=== PATIENT | female | born 1935 | race Hispanic/Latino ===

== ENCOUNTER 2020-12-04 08:00 | Inpatient (IN) | payer MEDICARE ==
--- NOTE | 2020-12-05 11:33 | Anesthesia Consultation ---
Anesthesia Consult and Med Hx Date of service: 12/11/20 - Airway Anesthetic Teeth Evaluation: Dentures (upper and lower) ROM Head & Neck: Adequate (mild restricted extension) Mental/Hyoid Distance: Adequate Mallampati Class: Class III Intubation Access Assessment: Possibly Difficult - Pulmonary Exam CTA: Yes - Cardiac Exam Cardiac Exam: RRR - Pre-Operative Health Status ASA Pre-Surgery Classification: ASA3 Proposed Anesthetic Plan: General - Pulmonary Hx Smoking: No Hx Respiratory Symptoms: No - Cardiovascular System Hx Hypertension: Yes Hx Heart Attack/AMI: No Hx Percutaneous Transluminal Coronary Angioplasty (PTCA): No Hx Cardia Arrhythmia: No - Central Nervous System CVA: No - Gastrointestinal Hx Gastroesophageal Reflux Disease: Yes - Endocrine Hx Renal Disease: Yes (CKD) Hx Liver Disease: No Hx Non-Insulin Dependent Diabetes: Yes (rare insulin requirement; fasting glucose 110s-120s) Hx Hypothyroidism: Yes - Other Systems Hx Obesity: No - Additional Comments Anesthesia Medical History Comments: Preop cardiology eval on chart. Cardiology note reports neg ST 2019 and normal EF 2018. TTE and ST reports requested. Has rare exertional chest pain for which she takes nitroglycerine prn. 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 Discussed pre-induction arterial line placement and post op ICU admission. Patient requests anxiolytic during arterial line placement.
[2020-12-05 14:14] LABS: Hematocrit 38.1 % (30.3-42.9); Mean Corpuscular HGB Conc 34 % (30-34); Mean Corpuscular Volume 91 fl (79-97); Platelet Count 181 K/mm3 (140-440); Red Blood Count 4.21 M/mm3 (3.65-5.03); Red Cell Distribution Width 13.3 % (13.2-15.2)
[2020-12-05 14:18] LABS: Calcium 9.5 mg/dL (8.4-10.2)
[2020-12-11] MEDS ORDERED: LACTATED RINGERS 1,000 ML IV SCH (06:00)
[2020-12-11] MEDS ORDERED: ceFAZolin/Water 2 GM/20 ML 2 GM/20 ML SYRINGE IV NR (06:00)
[2020-12-11] MEDS ORDERED: BUPIVACAINE/PF (0.5%) 5 MG/1 ML 10 ML VIAL INFILTRATI ONE (07:16)
[2020-12-11] MEDS ORDERED: PROTAMINE SULFATE 50 MG/5 ML INJ ONE (07:16)
[2020-12-11] MEDS ORDERED: LIDOCAINE (1%) 10 MG/1 ML VIAL 20 ML MDV ONE (07:16)
[2020-12-11] MEDS ORDERED: SODIUM CHLORIDE P/F VIAL 10 ML 10 ML ONE (07:17)
[2020-12-11] MEDS ORDERED: GELATIN SPONGE SIZE 100 TP ONE ×2 (07:17→11:21)
[2020-12-11] MEDS ORDERED: SODIUM CHLORIDE 0.9% 500 ML 500 ML ONE (07:17)
[2020-12-11] MEDS ORDERED: rifAMPin 600 MG VIAL ONE (07:17)
[2020-12-11] MEDS ORDERED: HEPARIN 10,000 UNITS/10 ML VIAL ONE (07:17)
[2020-12-11] MEDS ORDERED: THROMBIN (RECOMBINANT) 5,000 UNIT VIAL TP ONE ×2 (07:18→11:21)
--- NOTE | 2020-12-11 07:22 | Anesthesia Day of Surgery ---
Anesthesia Day of Surgery - Day of Surgery Patient Examined: Yes Patient H&P Reviewed: Yes Patient is NPO: Yes Beta Blockers: No Cardiac Clearance: No Pulmonary Clearance: No Guilherme's Test: N/A
[2020-12-11] MEDS ORDERED: ONDANSETRON 4 MG/2 ML INJ IV PRN ×2 (07:23→08:06)
[2020-12-11] MEDS ORDERED: NALOXONE 0.4 MG/1 ML INJ IV PRN (07:23)
[2020-12-11] MEDS ORDERED: oxyCODONE /ACETAMINOPHEN 5-325MG TAB PO PRN (07:23)
[2020-12-11] MEDS ORDERED: fentaNYL 100 MCG/2 ML INJ IV PRN (07:23)
[2020-12-11] MEDS ORDERED: BUPIVACAINE/PF (0.5%) 5 MG/1 ML 30 ML VIAL INFILTRATI ONE ×2 (07:28→10:17)
[2020-12-11] MEDS ORDERED: SODIUM CHLORIDE 0.9% 50 ML ONE (07:34)
[2020-12-11] MEDS ORDERED: ONDANSETRON 4 MG/2 ML INJ ONE (07:42)
[2020-12-11] MEDS ORDERED: ROCURONIUM 50 MG/5 ML INJ IV ONE (07:42)
[2020-12-11] MEDS ORDERED: LIDOCAINE MPF (2%) 20 MG/1 ML VIAL 5 ML ONE (07:42)
[2020-12-11] MEDS ORDERED: dexAMETHasone 20 MG/5 ML VIAL ONE (07:42)
[2020-12-11] MEDS ORDERED: propofoL 200 MG/20 ML VIAL IV ONE (07:42)
[2020-12-11] MEDS ORDERED: fentaNYL 100 MCG/2 ML INJ ONE (07:43)
[2020-12-11] MEDS ORDERED: PHENYLEPHRINE 10 MG/1 ML INJ SDV ONE (07:46)
[2020-12-11] MEDS ORDERED: HYDROmorphone 1 MG/1 ML INJ IV PRN ×2 (08:06)
--- NOTE | 2020-12-11 08:56 | Short Stay Summary ---
Short Stay Documentation Date of service: 12/11/20 Narrative H&P: The patient is an 85-year-old female with a history of carotid artery stenosis with questionable symptoms. She has occasional dizziness and headaches and had one episode of right arm numbness and weakness. 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 She had an ultrasound that demonstrated left internal carotid artery stenosis and this was subsequently confirmed by MRA. She was worked up and found to be a suitable candidate for left carotid endarterectomy. She has no additional complaints at this time. - History Past Medical History: diabetes, DVT, GERD, hypertension, hyperlipidemia, other (Carotid stenosis, cataract, hypothyroidism) Past Surgical History: cholecystectomy, hysterectomy, total knee replacement, Other (Stenting of bilateral iliac veins) Social history: lives with family - Allergies and Medications Current Medications: Allergies aspirin Allergy (Verified 12/04/20 09:04) Unknown ciprofloxacin [From Cipro] Allergy (Verified 12/04/20 09:04) Hives codeine Allergy (Verified 12/04/20 09:04) Shortness of Breath Iodinated Contrast Media Allergy (Verified 12/04/20 09:15) Unknown Sulfa (Sulfonamide Antibiotics) Allergy (Verified 12/04/20 09:04) Hives Home Medications Medication Instructions Recorded Confirmed Last Taken Type Clopidogrel [Plavix] 75 mg PO QDAY 12/04/20 12/04/20 Unknown History Furosemide [Lasix TAB] 80 mg PO DAILY 12/04/20 12/04/20 Unknown History Levothyroxine [Synthroid] 75 mcg PO QAM 12/04/20 12/04/20 Unknown History Potassium Chloride [K-Dur] 30 meq PO QDAY 12/04/20 12/04/20 Unknown History Rosuvastatin Calcium [Crestor] 20 mg PO DAILY 12/04/20 12/04/20 Unknown History verapamiL [Calan] 120 mg PO HS 12/04/20 12/04/20 Unknown History Active Medications Fentanyl (Fentanyl 100 Mcg/2 Ml Inj) 50 mcg IV Q5MIN PRN PRN Reason: Pain , Severe (7-10) Stop: 12/11/20 23:00 Hydromorphone HCl (Hydromorphone 1 Mg/1 Ml Inj) 0.25 mg IV Q10MIN PRN PRN Reason: Pain, Moderate (4-6) Stop: 12/11/20 20:00 Hydromorphone HCl (Hydromorphone 1 Mg/1 Ml Inj) 0.5 mg IV Q10MIN PRN PRN Reason: Pain , Severe (7-10) Stop: 12/11/20 20:00 Lactated Ringer's (Lactated Ringers) 1,000 mls @ 100 mls/hr IV DIRECT [facility] Stop: 12/11/20 23:59 Cefazolin Sodium (Ancef/Sterile Water 2 Gm/20 Ml) 2 gm in 20 mls @ 80 mls/hr IV PREOP NR; Protocol Stop: 12/11/20 20:00 Naloxone HCl (Naloxone 0.4 Mg/1 Ml Inj) 0.1 mg IV Q2MIN PRN PRN Reason: Res Rate </= 8 or 02 SAT < 92% Ondansetron HCl (Ondansetron 4 Mg/2 Ml Inj) 4 mg IV ONCE PRN PRN Reason: Nausea And Vomiting Stop: 12/11/20 16:00 Ondansetron HCl (Ondansetron 4 Mg/2 Ml Inj) 4 mg IV ONCE PRN PRN Reason: Nausea And Vomiting Stop: 12/11/20 18:00 Oxycodone/Acetaminophen (Oxycodone /Acetaminophen 5-325mg Tab) 1 tab PO ONCE PRN PRN Reason: Pain, Moderate (4-6) Stop: 12/11/20 18:00 - Physical exam General appearance: no acute distress Lungs: Normal air movement Breasts: deferred Heart: Regular rate Gastrointestinal: normal Female Genitourinary: deferred Rectal Exam: deferred Extremities: no ischemia, pulses intact, No edema - Brief post op/procedure progress note Date of procedure: 12/11/20 Pre-op diagnosis: Left Carotid Artery Stenosis Post-op diagnosis: same Procedure: 1. Left Carotid Artery Endarterectomy Patch Angioplasty 2. Intraoperative Completion Duplex Anesthesia: GETA Surgeon: CHA COLON Estimated blood loss: minimal Pathology: list (Left carotid artery plaque) Specimen disposition: to lab Condition: stable Short Stay Discharge Plan Follow up with: PRIMARY CARE, [Primary Care Provider] - 7 Days
[2020-12-11] MEDS ORDERED: GLYCOPYRROLATE 0.4 MG/2 ML INJ ONE ×3 (09:59→12:42)
[2020-12-11] MEDS ORDERED: HEPARIN 10,000 UNITS/10 ML VIAL IV ONE (10:17)
[2020-12-11] MEDS ORDERED: SODIUM CHLORIDE 0.9% 500 ML IVPB IRRIGATION ONE (10:18)
[2020-12-11] MEDS ORDERED: SODIUM CHLORIDE 0.9% P/F 10 ML VIAL IV ONE (10:20)
[2020-12-11] MEDS ORDERED: SODIUM CHLORIDE 0.9% 50 ML IVPB IV ONE (10:20)
[2020-12-11] MEDS ORDERED: rifAMPin 600 MG VIAL IV ONE (10:21)
[2020-12-11] MEDS ORDERED: SODIUM CHLORIDE 0.9% IRR 1,500 ML BOTTLE IR ONE (10:21)
[2020-12-11] MEDS ORDERED: NEOSTIGMINE 10MG/10 ML INJ MDV ONE (11:21)
--- NOTE | 2020-12-11 11:46 | Vascular Lab Report ---
VL carotid duplex LT INDICATION / CLINICAL INFORMATION: LT. CAROTID STENOSIS COMPARISON: None available. FINDINGS: LEFT CAROTID: Limited grayscale and color Doppler flow images of the left carotid were performed intr aoperatively after carotid endarterectomy. - PLAQUE ESTIMATE: < 50% -The carotid bifurcation appears within normal limits. - ICA peak systolic velocity: 64.3 cm/sec. -Left ICA end diastolic velocity = 6.7 cm/S Left Vertebral Artery: Antegrade flow. IMPRESSION: 1. Limited intraoperative ultrasound of the left carotid system status post carotid endarterectomy de monstrates patent internal carotid artery with velocities described above. Signer Name: Damon Cross MD Signed: 12/11/2020 11:41 AM Workstation Name: [id number]
--- NOTE | 2020-12-11 12:02 | Operative Report ---
Operative Report Operative Report: Date of procedure: 12/11/2020 Pre-operative diagnosis: Left Carotid Artery Stenosis Post-operative diagnosis: Left Carotid Artery Stenosis Procedure(s): 1. Left Carotid Endarterectomy With Patch Angioplasty 2. Intraoperative Completion Duplex Surgeon: Axel Burns MD Operating Room Specialist: None Anesthesia: General Endotracheal Anesthesia EBL: Minimal Findings: Completion duplex demonstrated monophasic flow in the left internal carotid artery with peak systolic velocities less than 80 cm/s without evidence of intimal flaps or thrombus. Specimen: Left Carotid Plaque Counts: Correct Complications: None Condition: Stable Indication: The patient is an 85-year-old female with a history of left internal carotid stenosis found on ultrasound. This was later verified on MRA. She was worked up and found to be a suitable candidate for a carotid endarterectomy. She was given the risk, benefits, and alternative procedures and consented to the procedure. Description of Procedure: The patient was brought to the operating room and laid in supine position. After general endotracheal anesthesia was achieved the patient was placed in beachchair position with her head elevated and turned slightly to the right. The patient's neck and chest were prepped and draped in normal fashion. An oblique incision was then created along the anterior border of the sternocleidomastoid. The incision was then carried down to the facial vein using sharp dissection. The facial vein was then dissected out circumferentially, suture ligated and divided. The dissection was then carried down to the common carotid using sharp dissection. The common carotid artery was dissected out circumferentially taking care to avoid the vagus nerve which was identified and avoided. The artery was then controlled with a large vessel loop. The dissection was carried up along the external carotid and the superficial thyroid artery was identified dissected out circumferentially and controlled with a 2-0 silk. The external carotid was dissected out and controlled a small vessel loop. I then dissected out the internal carotid artery well above the plaque which was identified by a change in hue of the artery from yellow to blue and palpation of the artery over a right angle. I controlled the internal carotid artery with a small vessel and at this point the patient was systemically heparinized with heparin IV. Once the heparin had circulated for 3 minute I clamped the internal carotid artery followed by the common carotid and then the external Carotid artery. I created an arteriotomy extending from the common carotid into the internal carotid, well above the plaque, using an 11 blade and Pantoja scissors. I then flashed the internal carotid artery to check for adequate backbleeding. Once ensure there was adequate backbleeding reclamped the artery and used a Herculaneum blade to dissect the plaque away from the artery. I used a right angle to continue the dissection of this plane from lateral to medial and then divided the plaque using Pantoja scissors. I then trimmed the plaque proximally using Pantoja and then teased the plaque away from the distal endpoint insuring that there were no areas of dissection or intimal flaps. These plaque forceps to remove all loose debris and then flushed the artery with heparinized saline. I then closed the artery using the Dacron patch and two 6-0 Prolenes in running fashion. Prior to completing the closure I flushed all arteries to remove all loose debris and then flushed the artery with heparinized saline. I then completed the closure in an flashed the internal carotid, reclamped and then removed the clamp from the common carotid followed by the external carotid and allowed any loose debris to flush into the external carotid. I then removed the clamp from the internal carotid artery. Hemostasis was achieved with repair sutures with 6-0 Prolene in interrupted fashion and a combination of direct pressure with Quick Clot. Once hemostasis was achieved I performed an intraoperative duplex that demonstrated no evidence of intimal flaps and monophasic flow within the internal carotid artery. I then anesthetized the wound with 0.5% Marcaine and closed in 2 layers using a 3-0 Vicryl in running in the deep dermal layer and a 4-0 Monocryl in running in the subcuticular layer and dressed it with the Dermabond. The patient tolerated the procedure well. All sponge, needle, and instrument counts were correct. The patient was taken to the recovery area in stable condition.
[2020-12-11] MEDS ORDERED: NITROPRUSSIDE 50 MG in DEXTROSE 5% IN WATER 248 ML IV SCH (13:00)
[2020-12-11] MEDS ORDERED: ACETAMINOPHEN IV 1,000 MG/100 ML BOTTLE IV SCH (13:00)
[2020-12-11] MEDS ORDERED: DOPamine/D5W 800 MG/250 ML 800 MG/250 ML BAG IV SCH (13:00)
[2020-12-11] MEDS ORDERED: GLYCOPYRROLATE 0.4 MG/2 ML INJ IV ONE (13:24)
--- NOTE | 2020-12-11 14:19 | Post Anesthesia Evaluation ---
- Post Anesthesia Evaluation Patient Participated: Yes Airway Patent: Yes Stable Respiratory Function: Yes Nausea/Vomiting: No Temp > 96.8F: Yes Pain Manageable: Yes Adequeate Hydration: Yes Anesthesia Complications: No Block Receding Appropriately: Not Applicable Patient on Ventilator: No
[2020-12-11] MEDS: ceFAZolin/NS 1 GM/50 ML 1 GM/50 ML BAG IV SCH ×2 (16:52→23:02)
[2020-12-11] MEDS: MIDODRINE 5 MG TAB PO SCH (17:49)
[2020-12-11] MEDS ORDERED: LACTATED RINGERS 1,000 ML IV ONE ×2 (18:00→20:00)
[2020-12-11] MEDS ORDERED: NORepinephrine/NS 4 MG-250 ML 4 MG/250 ML BAG IV SCH (18:00)
[2020-12-11] MEDS: SODIUM CHLORIDE 0.9% 1000 ML 1,000 ML IV SCH (19:17)
[2020-12-11] MEDS ORDERED: LACTATED RINGERS 2,000 ML IV ONE (20:25)
[2020-12-11] MEDS: ACETAMINOPHEN IV 1,000 MG/100 ML BOTTLE IV SCH (20:26)
[2020-12-11] MEDS: TIMOLOL 0.5% OPHTH SOLN 5 ML OU SCH (21:32)
[2020-12-11] MEDS: DOCUSATE SODIUM 100 MG CAP PO SCH (21:32)
[2020-12-11] MEDS ORDERED: VERAPAMIL 120 MG TAB PO SCH (22:00)
[2020-12-12] MEDS: ACETAMINOPHEN IV 1,000 MG/100 ML BOTTLE IV SCH ×2 (03:07→08:10)
[2020-12-12] MEDS ORDERED: LACTATED RINGERS 1,000 ML IV ONE (03:34)
[2020-12-12] MEDS: SODIUM CHLORIDE 0.9% 1000 ML 1,000 ML IV SCH ×2 (05:29→17:15)
[2020-12-12] MEDS: LEVOTHYROXINE 75 MCG TAB PO SCH (05:46)
[2020-12-12] MEDS ORDERED: FUROSEMIDE 40 MG TAB PO SCH (06:00)
[2020-12-12 06:28] LABS: Basophils % (Auto) 0.4 % (0.0-1.8); Eosinophils # (Auto) 0.1 K/mm3 (0.0-0.4); Eosinophils % (Auto) 0.9 % (0.0-4.3); Hematocrit 28.6 % (30.3-42.9); Lymphocytes # (Auto) 1.4 K/mm3 (1.2-5.4); Lymphocytes % (Auto) 20.1 % (13.4-35.0); Mean Corpuscular HGB Conc 35 % (30-34); Mean Corpuscular Volume 92 fl (79-97); Monocytes # (Auto) 0.7 K/mm3 (0.0-0.8); Monocytes % (Auto) 10.2 % (0.0-7.3); Platelet Count 123 K/mm3 (140-440); Red Blood Count 3.12 M/mm3 (3.65-5.03); Red Cell Distribution Width 13.3 % (13.2-15.2)
[2020-12-12] MEDS ORDERED: MIDODRINE 5 MG TAB PO SCH (08:00)
[2020-12-12] MEDS: MIDODRINE 5 MG TAB PO SCH (08:09)
[2020-12-12] MEDS: POTASSIUM CHLORIDE ER 10 MEQ TAB PO SCH (09:55)
[2020-12-12] MEDS: CLOPIDOGREL 75 MG TAB PO SCH (09:55)
[2020-12-12] MEDS: DOCUSATE SODIUM 100 MG CAP PO SCH ×2 (09:55→21:10)
[2020-12-12] MEDS: TIMOLOL 0.5% OPHTH SOLN 5 ML OU SCH ×2 (09:56→21:11)
[2020-12-12] MEDS ORDERED: POTASSIUM CHLORIDE ER 20 MEQ TAB PO SCH (10:00)
[2020-12-12] MEDS ORDERED: NON-FORMULARY EACH (Furosemide [Lasix Tab] 80 MG Tablet) PO SCH (10:00)
[2020-12-12] MEDS ORDERED: NON-FORMULARY EACH (Rosuvastatin Calcium [Crestor] 20 MG Tablet) PO SCH (10:00)
--- NOTE | 2020-12-12 11:21 | Consultation ---
History of Present Illness - Reason for Consult Consult date: 12/12/20 hypotension Requesting physician: CHA COLON - History of Present Illness 85 y/o female admitted to the step down unit post op for carotid endarectomy, unfortunately, patient became hypotensive and was then upgraded to ICU status. It was thought initially that she would require pressors but responded to fluid boluses to keep maps where Vascular had requested. She is awake and alert. Has been bradycardic all night. BP stable. Remainder is negative. Past History Past Medical History: diabetes, DVT, GERD, hypertension, hyperlipidemia, other (Carotid stenosis, cataract, hypothyroidism) Past Surgical History: cholecystectomy, hysterectomy, total knee replacement, Other (Stenting of bilateral iliac veins) Social history: lives with family Medications and Allergies Allergies Allergy/AdvReac Type Severity Reaction Status Date / Time aspirin Allergy Unknown Verified 12/04/20 09:04 ciprofloxacin [From Cipro] Allergy Hives Verified 12/04/20 09:04 codeine Allergy Shortness Verified 12/04/20 09:04 of Breath Iodinated Contrast Media Allergy Unknown Verified 12/04/20 09:15 Sulfa (Sulfonamide Allergy Hives Verified 12/04/20 09:04 Antibiotics) Home Medications Medication Instructions Recorded Confirmed Last Taken Type Clopidogrel [Plavix] 75 mg PO QDAY 12/04/20 12/04/20 12/11/20 05:30 History Furosemide [Lasix TAB] 80 mg PO DAILY 12/04/20 12/11/20 12/09/20 History Levothyroxine [Synthroid] 75 mcg PO QAM 12/04/20 12/04/20 12/11/20 05:30 History Potassium Chloride [K-Dur] 30 meq PO QDAY 12/04/20 12/04/20 12/10/20 History Rosuvastatin Calcium [Crestor] 20 mg PO DAILY 12/04/20 12/04/20 12/10/20 History verapamiL [Calan] 120 mg PO HS 12/04/20 12/04/20 12/10/20 History Timolol 0.5% [Timoptic] 1 bottle OU BID 12/11/20 12/11/20 12/10/20 History Active Meds: Active Medications Atorvastatin Calcium (Atorvastatin 40 Mg Tab) 40 mg PO QHS [facility] Last Admin: 12/11/20 21:31 Dose: 40 mg Documented by: Clopidogrel Bisulfate (Clopidogrel 75 Mg Tab) 75 mg PO QDAY [facility] Last Admin: 12/12/20 09:55 Dose: 75 mg Documented by: Docusate Sodium (Docusate Sodium 100 Mg Cap) 100 mg PO BID [facility] Last Admin: 12/12/20 09:55 Dose: 100 mg Documented by: Sodium Chloride (Nacl 0.9% 1000 Ml) 1,000 mls @ 100 mls/hr IV DIRECT [facility] Last Admin: 12/12/20 05:29 Dose: 100 mls/hr Documented by: Dopamine HCl/Dextrose (Intropin Drip 800 Mg/D5w 250 Ml) 800 mg in 250 mls @ 1.888 mls/hr IV TITR [facility]; Protocol Sodium Nitroprusside 50 mg/ (Dextrose) 250 mls @ 3.776 mls/hr IV TITR [facility]; Protocol Norepinephrine (Levophed Drip 4 Mg/Ns 250 Ml) 4 mg in 250 mls @ 7.5 mls/hr IV TITR [facility]; Protocol Levothyroxine Sodium (Levothyroxine 75 Mcg Tab) 75 mcg PO DAILY@0600 [facility] Last Admin: 12/12/20 05:46 Dose: 75 mcg Documented by: Midodrine (Midodrine 5 Mg Tab) 10 mg PO TID@0800,1200,1600 [facility] Last Admin: 12/12/20 08:09 Dose: 10 mg Documented by: Naloxone HCl (Naloxone 0.4 Mg/1 Ml Inj) 0.1 mg IV Q2MIN PRN PRN Reason: Res Rate </= 8 or 02 SAT < 92% Potassium Chloride (Potassium Chloride Er 10 Meq Tab) 30 meq PO QDAY [facility] Last Admin: 12/12/20 09:55 Dose: 30 meq Documented by: Timolol Maleate (Timolol 0.5% Ophth Soln 5 Ml) 1 drops OU BID [facility] Last Admin: 12/12/20 09:56 Dose: 1 drops Documented by: Verapamil HCl (Verapamil 120 Mg Tab) 120 mg PO [facility] Last Admin: 12/11/20 21:34 Dose: Not Given Documented by: Review of Systems All systems: negative Exam - Constitutional Vitals: Temp Pulse Resp BP Pulse Ox 98.8 F 50 L 17 116/94 98 12/12/20 07:24 12/12/20 10:01 12/12/20 10:01 12/12/20 10:01 12/12/20 10:01 Results - Labs CBC & Chem 7: 12/12/20 05:40 12/05/20 09:25 Labs: Abnormal lab results 12/11/20 12/12/20 Range/Units 13:11 05:40 RBC 3.12 L (3.65-5.03) M/mm3 Hgb 10.0 L (10.1-14.3) gm/dl Hct 28.6 L (30.3-42.9) % MCHC 35 H (30-34) % Plt Count 123 L (140-440) K/mm3 [place] % (Auto) 10.2 H (0.0-7.3) % POC Glucose 134 H (70-105) mg/dL Assessment and Plan 85 y/o female s/p CEA with bradycardia and hypotension, bp responded to fluids. 1. Check 12 lead EKG. 2. Hold CCB for now 3. Hold lasix therapy 4. Can consider echo 5. Follow up vascular recs 6. PT consult. CCT 31 minutes.
--- NOTE | 2020-12-12 12:37 | Progress Note ---
Assessment and Plan The patient is doing fairly well postoperative day #1 from a left carotid endarterectomy. She typically takes verapamil as at home medication however given her heart rate and blood pressure I will consult her freezer person James Martin MD who is with [facility] and asked for recommendations regarding her medications. She has not gotten out of bed yet so she will need to ambulate without assistance prior to being discharged. She will likely require at least 1 more day in the hospital prior to discharge home. She is otherwise doing well. Subjective Date of service: 12/12/20 Interval history: Patient is postoperative day #1 from a left carotid artery endarterectomy. She had relative hypotension with bradycardia the heart rate in the upper 40s is not significantly different from her baseline which is in the mid to lower 50s. The patient was asymptomatic from the systolic blood pressure in the 90s. She complains of some incisional pain and feeling somewhat tired however she has no additional complaints at this time. Objective - Constitutional Vitals: Vital Signs - 12hr 12/12/20 12/12/20 12/12/20 00:46 01:00 01:16 Temperature Pulse Rate 47 L 64 48 L Pulse Rate [ From Monitor] Respiratory 17 18 11 L Rate Blood Pressure 102/38 102/38 112/53 O2 Sat by Pulse 100 100 100 Oximetry 12/12/20 12/12/20 12/12/20 01:30 01:45 02:01 Temperature Pulse Rate 46 L 45 L 47 L Pulse Rate [ From Monitor] Respiratory 16 18 17 Rate Blood Pressure 112/53 114/39 114/39 O2 Sat by Pulse 100 100 99 Oximetry 12/12/20 12/12/20 12/12/20 02:15 02:31 02:45 Temperature Pulse Rate 47 L 45 L 48 L Pulse Rate [ From Monitor] Respiratory 16 18 19 Rate Blood Pressure 114/39 108/32 108/32 O2 Sat by Pulse 100 99 99 Oximetry 12/12/20 12/12/20 12/12/20 03:01 03:15 03:31 Temperature Pulse Rate 45 L 46 L 49 L Pulse Rate [ From Monitor] Respiratory 18 18 18 Rate Blood Pressure 117/41 117/41 117/41 O2 Sat by Pulse 98 99 97 Oximetry 12/12/20 12/12/20 12/12/20 03:45 04:00 04:01 Temperature 98.7 F Pulse Rate 46 L 47 L Pulse Rate [ From Monitor] Respiratory 18 18 Rate Blood Pressure 117/41 117/41 O2 Sat by Pulse 98 99 98 Oximetry 12/12/20 12/12/20 12/12/20 04:15 04:31 04:45 Temperature Pulse Rate 47 L 48 L 46 L Pulse Rate [ From Monitor] Respiratory 16 16 18 Rate Blood Pressure O2 Sat by Pulse 98 99 96 Oximetry 12/12/20 12/12/20 12/12/20 05:01 05:15 05:31 Temperature Pulse Rate 47 L 47 L 48 L Pulse Rate [ From Monitor] Respiratory 18 17 18 Rate Blood Pressure 108/40 O2 Sat by Pulse 97 95 94 Oximetry 12/12/20 12/12/20 12/12/20 05:45 06:01 06:15 Temperature Pulse Rate 52 L 49 L 49 L Pulse Rate [ From Monitor] Respiratory 17 19 18 Rate Blood Pressure 108/43 111/42 O2 Sat by Pulse 99 99 99 Oximetry 12/12/20 12/12/20 12/12/20 06:31 06:45 07:01 Temperature Pulse Rate 47 L 45 L 46 L Pulse Rate [ From Monitor] Respiratory 17 17 17 Rate Blood Pressure 111/42 111/42 108/70 O2 Sat by Pulse 98 98 99 Oximetry 12/12/20 12/12/20 12/12/20 07:15 07:24 07:31 Temperature 98.8 F Pulse Rate 48 L 48 L Pulse Rate [ From Monitor] Respiratory 18 18 Rate Blood Pressure 108/70 108/70 O2 Sat by Pulse 98 98 Oximetry 12/12/20 12/12/20 12/12/20 07:45 07:51 08:00 Temperature Pulse Rate 47 L 48 L Pulse Rate [ 60 From Monitor] Respiratory 16 22 Rate Blood Pressure 108/70 O2 Sat by Pulse 99 98 Oximetry 12/12/20 12/12/20 12/12/20 08:01 08:15 08:31 Temperature Pulse Rate 42 L 58 L 59 L Pulse Rate [ From Monitor] Respiratory 18 21 21 Rate Blood Pressure 116/60 O2 Sat by Pulse 99 99 99 Oximetry 12/12/20 12/12/20 12/12/20 08:38 08:45 09:01 Temperature Pulse Rate 49 L 51 L Pulse Rate [ From Monitor] Respiratory 20 18 Rate Blood Pressure 105/34 104/41 O2 Sat by Pulse 98 97 98 Oximetry 12/12/20 12/12/20 12/12/20 09:15 09:31 09:45 Temperature Pulse Rate 45 L 45 L 43 L Pulse Rate [ From Monitor] Respiratory 21 17 18 Rate Blood Pressure 104/41 104/41 104/41 O2 Sat by Pulse 97 98 98 Oximetry 12/12/20 12/12/20 12/12/20 10:01 10:15 10:31 Temperature Pulse Rate 50 L 48 L 41 L Pulse Rate [ From Monitor] Respiratory 17 21 19 Rate Blood Pressure 116/94 110/64 108/73 O2 Sat by Pulse 98 98 99 Oximetry 12/12/20 12/12/20 12/12/20 10:45 11:01 11:15 Temperature Pulse Rate 53 L 43 L 42 L Pulse Rate [ From Monitor] Respiratory 17 21 20 Rate Blood Pressure 110/64 108/73 108/73 O2 Sat by Pulse 99 98 98 Oximetry 12/12/20 12/12/20 12/12/20 11:31 11:45 12:00 Temperature Pulse Rate 53 L 44 L Pulse Rate [ 54 L From Monitor] Respiratory 22 21 12 Rate Blood Pressure 108/73 108/73 O2 Sat by Pulse 99 98 100 Oximetry 12/12/20 12/12/20 12:01 12:15 Temperature Pulse Rate 49 L 52 L Pulse Rate [ From Monitor] Respiratory 22 15 Rate Blood Pressure 115/42 115/42 O2 Sat by Pulse 99 100 Oximetry General appearance: Present: no acute distress - EENT ENT: other ( Tongue is midline and smile is symmetric.) - Neck Neck: other (Left neck incision with ecchymosis however there is no evidence of a hematoma. The incision is clean, dry, and intact. ) - Respiratory Respiratory effort: normal - Breasts Breasts: deferred - Cardiovascular Heart rate: 48 Rhythm: regular Extremities: no ischemia - Gastrointestinal General gastrointestinal: Present: soft, non-distended Rectal Exam: deferred - Genitourinary Female genitourinary: deferred - Musculoskeletal Musculoskeletal: strength equal bilaterally - Neurologic Neurologic: no focal deficits - Labs CBC & Chem 7: 12/12/20 05:40 12/05/20 09:25 Labs: Abnormal lab results 12/11/20 12/12/20 Range/Units 13:11 05:40 RBC 3.12 L (3.65-5.03) M/mm3 Hgb 10.0 L (10.1-14.3) gm/dl Hct 28.6 L (30.3-42.9) % MCHC 35 H (30-34) % Plt Count 123 L (140-440) K/mm3 [place] % (Auto) 10.2 H (0.0-7.3) % POC Glucose 134 H (70-105) mg/dL Medications & Allergies - Medications Allergies/Adverse Reactions: Allergies aspirin Allergy (Verified 12/04/20 09:04) Unknown ciprofloxacin [From Cipro] Allergy (Verified 12/04/20 09:04) Hives codeine Allergy (Verified 12/04/20 09:04) Shortness of Breath Iodinated Contrast Media Allergy (Verified 12/04/20 09:15) Unknown Sulfa (Sulfonamide Antibiotics) Allergy (Verified 12/04/20 09:04) Hives Home Medications: Home Medications Medication Instructions Recorded Confirmed Last Taken Type Clopidogrel [Plavix] 75 mg PO QDAY 12/04/20 12/04/20 12/11/20 05:30 History Furosemide [Lasix TAB] 80 mg PO DAILY 12/04/20 12/11/20 12/09/20 History Levothyroxine [Synthroid] 75 mcg PO QAM 12/04/20 12/04/20 12/11/20 05:30 History Potassium Chloride [K-Dur] 30 meq PO QDAY 12/04/20 12/04/20 12/10/20 History Rosuvastatin Calcium [Crestor] 20 mg PO DAILY 12/04/20 12/04/20 12/10/20 History verapamiL [Calan] 120 mg PO HS 12/04/20 12/04/20 12/10/20 History Timolol 0.5% [Timoptic] 1 bottle OU BID 12/11/20 12/11/20 12/10/20 History Active Medications: Generic Name Dose Route Start Last Admin Trade Name Freq PRN Reason Stop Dose Admin Atorvastatin Calcium 40 mg 12/11/20 22:00 12/11/20 21:31 Atorvastatin 40 Mg Tab PO 40 mg QHS [facility] Administration Clopidogrel Bisulfate 75 mg 12/12/20 10:00 12/12/20 09:55 Clopidogrel 75 Mg Tab PO 75 mg QDAY [facility] Administration Docusate Sodium 100 mg 12/11/20 22:00 12/12/20 09:55 Docusate Sodium 100 Mg Cap PO 100 mg BID [facility] Administration Sodium Chloride 1,000 mls @ 100 mls/hr 12/11/20 12:30 12/12/20 05:29 Nacl 0.9% 1000 Ml IV 100 mls/hr DIRECT [facility] Administration Dopamine HCl/Dextrose 800 mg in 250 mls @ 1.888 mls/hr 12/11/20 13:00 Intropin Drip 800 Mg/D5w 250 Ml IV TITR [facility] Protocol 2 MCG/KG/MIN Sodium Nitroprusside 50 mg/ 250 mls @ 3.776 mls/hr 12/11/20 13:00 Dextrose IV TITR [facility] Protocol 0.25 MCG/KG/MIN Norepinephrine 4 mg in 250 mls @ 7.5 mls/hr 12/11/20 18:00 Levophed Drip 4 Mg/Ns 250 Ml IV TITR [facility] Protocol 2 MCG/MIN Levothyroxine Sodium 75 mcg 12/12/20 06:00 12/12/20 05:46 Levothyroxine 75 Mcg Tab PO 75 mcg DAILY@0600 [facility] Administration Midodrine 10 mg 12/11/20 18:00 12/12/20 08:09 Midodrine 5 Mg Tab PO 10 mg TID@0800,1200,1600 [facility] Administration Naloxone HCl 0.1 mg 12/11/20 07:23 Naloxone 0.4 Mg/1 Ml Inj IV Q2MIN PRN Res Rate </= 8 or 02 SAT < 92% Potassium Chloride 30 meq 12/12/20 10:00 12/12/20 09:55 Potassium Chloride Er 10 Meq Tab PO 30 meq QDAY [facility] Administration Timolol Maleate 1 drops 12/11/20 22:00 12/12/20 09:56 Timolol 0.5% Ophth Soln 5 Ml OU 1 drops BID [facility] Administration Verapamil HCl 120 mg 12/11/20 22:00 12/11/20 21:34 Verapamil 120 Mg Tab PO Not Given HS [facility]
[2020-12-12] MEDS ORDERED: ACETAMINOPHEN 325 MG TAB PO PRN (23:07)
[2020-12-13] MEDS: MIDODRINE 5 MG TAB PO SCH ×2 (04:36→07:57)
[2020-12-13] MEDS: LEVOTHYROXINE 75 MCG TAB PO SCH (05:47)
[2020-12-13] MEDS: TIMOLOL 0.5% OPHTH SOLN 5 ML OU SCH (10:01)
[2020-12-13] MEDS: CLOPIDOGREL 75 MG TAB PO SCH (10:01)
[2020-12-13] MEDS: POTASSIUM CHLORIDE ER 10 MEQ TAB PO SCH (10:02)
[2020-12-13] MEDS: DOCUSATE SODIUM 100 MG CAP PO SCH (10:02)
--- NOTE | 2020-12-13 10:28 | Progress Note ---
Assessment and Plan 85 y/o female s/p CEA with bradycardia and hypotension, bp responded to fluids. 12/13/20: Stable from a critical care standpoint. Will change Midodrine to 5 TID. Likely will be able to wean off. Follow up cardiology recs. Ok with gaspar sfer to floor, suggest telemetry. 1. Check 12 lead EKG. 2. Hold CCB for now 3. Hold lasix therapy 4. Can consider echo 5. Follow up vascular recs 6. PT consult. CCT 31 minutes. Subjective Date of service: 12/13/20 Interval history: No acute events. HR in the 70's. BP stable. Objective - Constitutional Vitals: Vital Signs - 12hr 12/12/20 12/12/20 12/12/20 22:30 22:45 23:00 Temperature Pulse Rate 84 69 82 Pulse Rate [ From Monitor] Respiratory 15 18 13 Rate Blood Pressure 136/88 136/88 127/80 O2 Sat by Pulse 99 98 99 Oximetry 12/12/20 12/12/20 12/12/20 23:15 23:19 23:31 Temperature Pulse Rate 70 80 67 Pulse Rate [ From Monitor] Respiratory 22 13 24 Rate Blood Pressure 127/80 128/46 121/47 O2 Sat by Pulse 100 99 99 Oximetry 12/12/20 12/12/20 12/13/20 23:41 23:45 00:00 Temperature 100.0 F H Pulse Rate 55 L 55 L Pulse Rate [ 62 From Monitor] Respiratory 24 14 Rate Blood Pressure 128/46 O2 Sat by Pulse 98 97 Oximetry 12/13/20 12/13/20 12/13/20 00:01 00:15 00:31 Temperature Pulse Rate 53 L 75 53 L Pulse Rate [ From Monitor] Respiratory 22 19 21 Rate Blood Pressure 105/35 105/35 102/36 O2 Sat by Pulse 97 98 98 Oximetry 12/13/20 12/13/20 12/13/20 00:45 01:01 01:15 Temperature Pulse Rate 56 L 53 L 60 Pulse Rate [ From Monitor] Respiratory 21 22 16 Rate Blood Pressure 102/36 96/31 96/31 O2 Sat by Pulse 97 98 99 Oximetry 12/13/20 12/13/20 12/13/20 01:31 01:45 02:01 Temperature Pulse Rate 52 L 53 L 68 Pulse Rate [ From Monitor] Respiratory 19 13 20 Rate Blood Pressure 95/35 95/35 99/39 O2 Sat by Pulse 98 98 99 Oximetry 12/13/20 12/13/20 12/13/20 02:15 02:31 02:45 Temperature Pulse Rate 56 L 53 L 55 L Pulse Rate [ From Monitor] Respiratory 20 20 22 Rate Blood Pressure 112/38 113/36 113/36 O2 Sat by Pulse 99 98 98 Oximetry 12/13/20 12/13/20 12/13/20 03:01 03:15 03:31 Temperature Pulse Rate 58 L 62 55 L Pulse Rate [ From Monitor] Respiratory 20 21 21 Rate Blood Pressure 117/42 117/42 108/39 O2 Sat by Pulse 98 98 99 Oximetry 12/13/20 12/13/20 12/13/20 03:45 04:00 04:01 Temperature 98.9 F Pulse Rate 57 L 50 L 52 L Pulse Rate [ 52 L From Monitor] Respiratory 20 19 19 Rate Blood Pressure 108/39 114/42 O2 Sat by Pulse 99 99 99 Oximetry 12/13/20 12/13/20 12/13/20 04:15 04:31 04:45 Temperature Pulse Rate 50 L 58 L 58 L Pulse Rate [ From Monitor] Respiratory 21 20 15 Rate Blood Pressure 114/42 119/37 119/37 O2 Sat by Pulse 100 100 100 Oximetry 12/13/20 12/13/20 12/13/20 05:01 05:15 05:31 Temperature Pulse Rate 56 L 66 67 Pulse Rate [ From Monitor] Respiratory 21 21 16 Rate Blood Pressure 104/44 104/44 132/47 O2 Sat by Pulse 100 100 100 Oximetry 12/13/20 12/13/20 12/13/20 05:45 06:01 06:15 Temperature Pulse Rate 87 67 56 L Pulse Rate [ From Monitor] Respiratory 15 20 22 Rate Blood Pressure 132/47 128/48 128/48 O2 Sat by Pulse 98 100 100 Oximetry 12/13/20 12/13/20 12/13/20 06:31 06:45 07:01 Temperature Pulse Rate 62 56 L 58 L Pulse Rate [ From Monitor] Respiratory 22 23 19 Rate Blood Pressure 119/40 119/40 123/46 O2 Sat by Pulse 100 100 100 Oximetry 12/13/20 12/13/20 12/13/20 07:15 07:22 07:31 Temperature 98.1 F Pulse Rate 64 56 L Pulse Rate [ From Monitor] Respiratory 21 22 Rate Blood Pressure 123/46 121/42 O2 Sat by Pulse 100 100 Oximetry 12/13/20 12/13/20 12/13/20 07:45 08:00 08:01 Temperature Pulse Rate 71 80 76 Pulse Rate [ 76 From Monitor] Respiratory 22 22 18 Rate Blood Pressure 121/42 146/56 O2 Sat by Pulse 97 99 96 Oximetry 12/13/20 12/13/20 12/13/20 08:15 08:31 08:45 Temperature Pulse Rate 75 88 74 Pulse Rate [ From Monitor] Respiratory 25 H 13 26 H Rate Blood Pressure 146/56 135/34 135/34 O2 Sat by Pulse 95 98 94 Oximetry 12/13/20 09:01 Temperature Pulse Rate 69 Pulse Rate [ From Monitor] Respiratory 26 H Rate Blood Pressure 152/55 O2 Sat by Pulse 95 Oximetry - Labs CBC & Chem 7: 12/12/20 05:40 12/05/20 09:25 Labs: Abnormal lab results 12/12/20 Range/Units 11:37 POC Glucose 159 H (70-105) mg/dL Medications & Allergies - Medications Allergies/Adverse Reactions: Allergies aspirin Allergy (Verified 12/04/20 09:04) Unknown ciprofloxacin [From Cipro] Allergy (Verified 12/04/20 09:04) Hives codeine Allergy (Verified 12/04/20 09:04) Shortness of Breath Iodinated Contrast Media Allergy (Verified 12/04/20 09:15) Unknown Sulfa (Sulfonamide Antibiotics) Allergy (Verified 12/04/20 09:04) Hives Home Medications: Home Medications Medication Instructions Recorded Confirmed Last Taken Type Clopidogrel [Plavix] 75 mg PO QDAY 12/04/20 12/04/20 12/11/20 05:30 History Furosemide [Lasix TAB] 80 mg PO DAILY 12/04/20 12/11/20 12/09/20 History Levothyroxine [Synthroid] 75 mcg PO QAM 12/04/20 12/04/20 12/11/20 05:30 History Potassium Chloride [K-Dur] 30 meq PO QDAY 12/04/20 12/04/20 12/10/20 History Rosuvastatin Calcium [Crestor] 20 mg PO DAILY 12/04/20 12/04/20 12/10/20 History verapamiL [Calan] 120 mg PO HS 12/04/20 12/04/20 12/10/20 History Timolol 0.5% [Timoptic] 1 bottle OU BID 12/11/20 12/11/20 12/10/20 History oxyCODONE /ACETAMINOPHEN [Percocet 1 tab PO Q6HR PRN #30 tablet 12/12/20 Unknown Rx 5/325] Active Medications: Generic Name Dose Route Start Last Admin Trade Name Freq PRN Reason Stop Dose Admin Acetaminophen 650 mg 12/12/20 23:07 12/12/20 23:30 Acetaminophen 325 Mg Tab PO 650 mg Q6H PRN Administration Pain, Mild (1-3) Atorvastatin Calcium 40 mg 12/11/20 22:00 12/12/20 21:10 Atorvastatin 40 Mg Tab PO 40 mg QHS HOMAR Administration Clopidogrel Bisulfate 75 mg 12/12/20 10:00 12/13/20 10:01 Clopidogrel 75 Mg Tab PO 75 mg QDAY HOMAR Administration Docusate Sodium 100 mg 12/11/20 22:00 12/13/20 10:02 Docusate Sodium 100 Mg Cap PO 100 mg BID HOMAR Administration Dopamine HCl/Dextrose 800 mg in 250 mls @ 1.888 mls/hr 12/11/20 13:00 Intropin Drip 800 Mg/D5w 250 Ml IV TITR HOMAR Protocol 2 MCG/KG/MIN Sodium Nitroprusside 50 mg/ 250 mls @ 3.776 mls/hr 12/11/20 13:00 Dextrose IV TITR HOMAR Protocol 0.25 MCG/KG/MIN Norepinephrine 4 mg in 250 mls @ 7.5 mls/hr 12/11/20 18:00 Levophed Drip 4 Mg/Ns 250 Ml IV TITR HOMAR Protocol 2 MCG/MIN Levothyroxine Sodium 75 mcg 12/12/20 06:00 12/13/20 05:47 Levothyroxine 75 Mcg Tab PO 75 mcg DAILY@0600 HOMAR Administration Midodrine 5 mg 12/13/20 12:00 Midodrine 5 Mg Tab PO TID@0800,1200,1600 HOMAR Naloxone HCl 0.1 mg 12/11/20 07:23 Naloxone 0.4 Mg/1 Ml Inj IV Q2MIN PRN Res Rate </= 8 or 02 SAT < 92% Potassium Chloride 30 meq 12/12/20 10:00 12/13/20 10:02 Potassium Chloride Er 10 Meq Tab PO 30 meq QDAY HOMAR Administration Timolol Maleate 1 drops 12/11/20 22:00 12/13/20 10:01 Timolol 0.5% Ophth Soln 5 Ml OU 1 drops BID HOMAR Administration
--- NOTE | 2020-12-13 10:53 | Electrocardiograph Report ---
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
--- NOTE | 2020-12-13 11:50 | Progress Note ---
Assessment and Plan Marked Sinus Bradycardia resolved. Verapamil was discontinued Carotid stenosis s/p left CEA on plavix Post-operative hypotension 2018 Echo: LVEF 60%. 2019 MPI: no ischemia. Subjective Date of service: 12/13/20 Interval history: Patient is 2 days status post left CEA. Postoperatively she was noted hypotensive with systolic in the low 90s and bradycardic with heart rate in the 50s. There were no report of chest pain or shortness of breath. Home medications lists she is on Verapamil 120 mg daily which is now discontinued. Currently, telemetry shows sinus rhythm, rate 65. Objective Vital Signs Temp Pulse Pulse Resp BP Pulse Ox 12/13/20 11:31 69 15 136/55 96 12/13/20 11:15 53 L 28 H 148/49 95 12/13/20 11:01 52 L 27 H 148/49 95 12/13/20 10:45 60 26 H 133/58 94 12/13/20 10:31 48 L 27 H 133/58 95 12/13/20 10:15 62 28 H 135/54 95 12/13/20 10:01 70 18 135/54 94 12/13/20 09:45 69 17 138/42 93 12/13/20 09:31 70 25 H 138/42 93 12/13/20 09:15 63 22 152/55 94 12/13/20 09:01 69 26 H 152/55 95 12/13/20 08:45 74 26 H 135/34 94 12/13/20 08:31 88 13 135/34 98 12/13/20 08:15 75 25 H 146/56 95 12/13/20 08:01 76 18 146/56 96 12/13/20 08:00 80 76 22 99 12/13/20 07:45 71 22 121/42 97 12/13/20 07:31 56 L 22 121/42 100 12/13/20 07:22 98.1 F 12/13/20 07:15 64 21 123/46 100 12/13/20 07:01 58 L 19 123/46 100 12/13/20 06:45 56 L 23 119/40 100 12/13/20 06:31 62 22 119/40 100 12/13/20 06:15 56 L 22 128/48 100 12/13/20 06:01 67 20 128/48 100 12/13/20 05:45 87 15 132/47 98 12/13/20 05:31 67 16 132/47 100 12/13/20 05:15 66 21 104/44 100 12/13/20 05:01 56 L 21 104/44 100 12/13/20 04:45 58 L 15 119/37 100 12/13/20 04:31 58 L 20 119/37 100 12/13/20 04:15 50 L 21 114/42 100 12/13/20 04:01 52 L 19 114/42 99 12/13/20 04:00 98.9 F 50 L 52 L 19 99 12/13/20 03:45 57 L 20 108/39 99 12/13/20 03:31 55 L 21 108/39 99 12/13/20 03:15 62 21 117/42 98 12/13/20 03:01 58 L 20 117/42 98 12/13/20 02:45 55 L 22 113/36 98 12/13/20 02:31 53 L 20 113/36 98 12/13/20 02:15 56 L 20 112/38 99 12/13/20 02:01 68 20 99/39 99 12/13/20 01:45 53 L 13 95/35 98 12/13/20 01:31 52 L 19 95/35 98 12/13/20 01:15 60 16 96/31 99 12/13/20 01:01 53 L 22 96/31 98 12/13/20 00:45 56 L 21 102/36 97 12/13/20 00:31 53 L 21 102/36 98 12/13/20 00:15 75 19 105/35 98 12/13/20 00:01 53 L 22 105/35 97 12/13/20 00:00 55 L 62 14 97 12/12/20 23:45 55 L 24 128/46 98 12/12/20 23:41 100.0 F H 12/12/20 23:31 67 24 121/47 99 12/12/20 23:19 80 13 128/46 99 12/12/20 23:15 70 22 127/80 100 12/12/20 23:00 82 13 127/80 99 12/12/20 22:45 69 18 136/88 98 12/12/20 22:30 84 15 136/88 99 12/12/20 22:15 64 16 131/51 98 05/19/21 22:01 61 16 125/45 99 12/12/20 21:46 72 24 123/48 99 12/12/20 21:31 81 19 123/48 99 12/12/20 21:15 59 L 27 H 130/45 99 12/12/20 21:01 58 L 19 130/45 99 12/12/20 20:45 62 25 H 136/46 99 12/12/20 20:31 68 18 130/43 98 12/12/20 20:17 98 12/12/20 20:15 75 17 126/46 98 12/12/20 20:01 69 19 131/44 97 12/12/20 20:00 99.7 F H 69 69 19 97 12/12/20 19:46 68 29 H 126/43 97 12/12/20 19:31 69 25 H 124/41 97 12/12/20 19:15 76 32 H 124/44 98 12/12/20 19:01 67 24 118/43 98 12/12/20 18:45 61 25 H 120/36 98 12/12/20 18:31 60 27 H 116/39 99 12/12/20 18:15 60 29 H 130/43 99 12/12/20 18:01 59 L 30 H 130/43 99 12/12/20 17:45 58 L 27 H 139/44 99 12/12/20 17:39 98.3 F 12/12/20 17:31 66 19 57/37 100 12/12/20 17:15 70 17 128/41 98 12/12/20 17:01 54 L 18 130/42 99 12/12/20 16:45 53 L 24 128/41 100 12/12/20 16:31 54 L 21 110/44 100 12/12/20 16:15 54 L 26 H 120/38 100 12/12/20 16:01 66 13 123/39 100 12/12/20 16:00 56 L 53 L 22 100 12/12/20 15:45 51 L 24 122/40 99 12/12/20 15:31 52 L 16 121/31 99 12/12/20 15:15 50 L 18 119/40 100 12/12/20 15:01 51 L 22 120/42 99 12/12/20 14:45 50 L 23 120/40 99 12/12/20 14:31 57 L 18 108/34 98 12/12/20 14:15 54 L 12 108/34 100 12/12/20 14:01 67 12 108/34 100 12/12/20 13:45 60 24 108/34 100 12/12/20 13:31 54 L 23 110/42 100 12/12/20 13:15 52 L 24 91/60 100 12/12/20 13:01 55 L 10 L 91/60 100 12/12/20 12:45 48 L 18 114/80 100 12/12/20 12:38 98.3 F 12/12/20 12:31 51 L 21 114/80 100 12/12/20 12:17 64 12/12/20 12:15 52 L 15 115/42 100 12/12/20 12:01 49 L 22 115/42 99 12/12/20 12:00 54 L 12 100 12/12/20 11:45 44 L 21 108/73 98 - Physical Examination General: No Apparent Distress HEENT: Positive: PERRL Neck: Positive: Other (left CEA) Cardiac: Positive: Reg Rate and Rhythm Lungs: Positive: Decreased Breath Sounds
[2020-12-13] MEDS ORDERED: MIDODRINE 5 MG TAB PO SCH (12:00)
--- NOTE | 2020-12-13 15:37 | Discharge Summary ---
Providers - Providers Date of Admission: 12/11/20 07:01 Date of discharge: 12/13/20 Attending physician: CHA COLON 12/11/20 15:30 Consult to Dietitian/Nutrition [CONS] Routine Physician Instructions: Reason For Exam: Reason for Consult: Diet education 12/11/20 16:51 Consult to Physician [CONS] Routine Comment: Consulting Provider: CLAUDETTE SÁNCHEZ Physician Instructions: Reason For Exam: Medical Management Consult to Physician [CONS] Routine Comment: Spoke to Personally Consulting Provider: ETTA WILSON Physician Instructions: Reason For Exam: Critical Care Consult 12/12/20 12:37 Consult to Physician [CONS] Routine Comment: Consulting Provider: MICHELLE HOPE Physician Instructions: Reason For Exam: Cardiac Medication Adjustmment 12/12/20 14:58 Physical Therapy Evaluation and Treat [CONS] Routine Comment: Reason For Exam: Debility Primary care physician: [employer] Hospitalization Reason for admission: Carotid stenosis Condition: Good Hospital course: Patient with a history of left carotid stenosis status post left carotid endarterectomy. Following her surgery, the patient had some episodes of hypotension and was noted to be on 130 mg of verapamil daily. This was discontinued with significant improvement in her symptoms. The patient has been seen and evaluated by cardiology. The patient is doing very well. No complaints of weakness. She has been ambulating independently in her room. No dysphagia or difficulty breathing. No significant pain at the incision site. The incision site is clean dry and intact with only minimal subcutaneous bruising. Disposition: TO HOME OR SELFCARE Final Discharge Diagnosis (Prints w/discharge instructions): Carotid stenosis - Discharge Diagnoses (1) Carotid stenosis Status: Acute Qualifiers: Laterality: left Qualified Code(s): I65.22 - Occlusion and stenosis of left carotid artery (2) Carotid stenosis, left Status: Acute Core Measure Documentation - Palliative Care Palliative Care/ Comfort Measures: Not Applicable - Core Measures Any of the following diagnoses?: none Exam - Constitutional Vitals: Temp Pulse Resp BP Pulse Ox 98.0 F 62 26 H 148/57 100 12/13/20 11:59 12/13/20 14:31 12/13/20 14:31 12/13/20 14:31 12/13/20 14:31 General appearance: Present: no acute distress - EENT Eyes: Present: EOM intact ENT: hearing intact - Neck Neck: Present: supple, normal ROM, other (Postsurgical changes to left carotid endarterectomy) - Respiratory Respiratory effort: normal - Cardiovascular Rhythm: regular - Abdominal General gastrointestinal: Present: deferred - Rectal Rectal Exam: deferred - Psychiatric Psychiatric: appropriate mood/affect, cooperative Plan Activity: advance as tolerated, fall precautions Weight Bearing Status: Weight Bear as Tolerated Wound: keep clean and dry, per your surgeon's advice Follow up with: CHA COLON MD [Staff Physician] - 14 Days Prescriptions: oxyCODONE /ACETAMINOPHEN [Percocet 5/325] 1 tab PO Q6HR PRN #30 tablet PRN Reason: Pain
[2020-12-13 16:42] VITALS: BP 146/62
== END 2020-12-13 16:30 | disposition home or self-care (01) | DRG 39 ==
LOC: 3A 12-11 07:01 → CC1 12-11 12:47
PROVIDERS: ADMIT Surgery Vascular Surgery; ATTEND Surgery Vascular Surgery
PROC: 03CL0ZZ Extirpation of Matter from Left Internal Carotid Artery, Open Approach (ICD-10-PCS; principal; 2020-12-11)
PROC: 03UL0JZ Supplement Left Internal Carotid Artery with Synthetic Substitute, Open Approach (ICD-10-PCS; 2020-12-11)
DX: I65.22 Occlusion and stenosis of left carotid artery (principal); K21.9 Gastro-esophageal reflux disease without esophagitis; R00.1 Bradycardia, unspecified; I95.9 Hypotension, unspecified; Z20.822 Contact with and (suspected) exposure to COVID-19; E03.9 Hypothyroidism, unspecified; N18.9 Chronic kidney disease, unspecified; I12.9 Hypertensive chronic kidney disease with stage 1 through stage 4 chronic kidney disease, or unspecified chronic kidney disease; E11.22 Type 2 diabetes mellitus with diabetic chronic kidney disease; Z86.718 Personal history of other venous thrombosis and embolism; Z90.49 Acquired absence of other specified parts of digestive tract; Z90.710 Acquired absence of both cervix and uterus; Z88.6 Allergy status to analgesic agent; Z88.5 Allergy status to narcotic agent; Z88.2 Allergy status to sulfonamides; Z88.1 Allergy status to other antibiotic agents; Z91.041 Radiographic dye allergy status
CPT/HCPCS: 36415; 80048; 82962; 85025; 85027; 88304; 88311; 93005; G0378; A4649; A9270-GY; C1768; J0131; J0690; J1100; J1170; J1644; J2370; J2405; J2704; J2710; J2720; J3010; J3490; J7030; J7040; J7120; U0003